=== PATIENT | male | born 1960 | race Caucasian/White ===

== ENCOUNTER 2022-03-02 07:44 | Outpatient (CLI) | payer OTHER ==
--- NOTE | 2022-03-02 16:32 | MRI Report ---
PROCEDURE: CERVICAL SPINE WO INDICATIONS: CERVICALGIA TECHNIQUE: Noncontrast sagittal T1 spin echo and T2 fast spin echo, sagittal STIR, foraminal oblique sagittal T2 fast spin echo, and axial gradient echo or T2 fast spin echo through the cervical spine. COMPARISON: None. FINDINGS: Image quality: Excellent. Alignment and Curvature: There is overall straightening of normal cervical curvature. There is 2 mm retrolisthesis of C5 on C6. Bone Marrow: Marrow demonstrates normal overall signal. Mild/moderate reactive endplate changes are present at C5-6 and C6-7. Spinal Cord: Visualized spinal cord has normal size and signal. No cerebellar tonsillar herniation. Paraspinous Soft Tissues: No paravertebral masses. Prevertebral soft tissues are normal in thicknes s. Discs Multilevel moderate to severe degenerative disc space narrowing is present most severe at C5-6 and C6-7. C2-C3: No disc bulge, spinal stenosis or foraminal narrowing. C3-C4: Minimal disc bulge with slight effacement anterior thecal sac. No foraminal narrowing. C4-C5: Mild disc bulge with moderate spinal stenosis. Mild left and [id number] right foraminal narrowing with uncovertebral hypertrophy. C5-C6: Mild disc bulge with superimposed left posterior central protrusion. There is also appearance of superimposed extrusion. There is moderate compromise of the left lateral recess as well as modera te to severe spinal stenosis. Moderate bilateral foraminal narrowing, left greater than right. C6-C7: Mild disc bulge with mild to moderate spinal stenosis. Moderate bilateral foraminal narrowing with uncovertebral hypertrophy. C7-T1: No disc bulge, spinal stenosis or foraminal narrowing. IMPRESSION: Multilevel degenerative changes most severe at C5-6 demonstrating disc bulge with superimposed protru byron/extrusion and compromise of the left lateral recess. Moderate to severe stenosis is also present at this level. Reviewed by: Shiloh Matute MD on 03/02/2022 4:31 PM PDT Approved by: Shiloh Matute MD on 03/02/2022 4:31 PM PDT Station ID: [id number]
== END 2022-03-02 07:45 | disposition home or self-care (01) ==
LOC: DI 07:44
PROVIDERS: ATTEND Family Medicine
DX: M43.12 Spondylolisthesis, cervical region (principal); M47.812 Spondylosis without myelopathy or radiculopathy, cervical region; M50.222 Other cervical disc displacement at C5-C6 level; R20.0 Anesthesia of skin; M48.02 Spinal stenosis, cervical region